=== PATIENT | female | born 1945 | race Caucasian/White ===

== ENCOUNTER 2025-01-04 08:12 | Inpatient (IN) | payer OTHER, MEDICARE ==
[~2025-01-04] VITALS: Ht 162.6 cm; Wt 63.5 kg
[2025-01-04 08:50] VITALS: PULSE 155; RESP 20
--- NOTE | 2025-01-04 09:24 | ED.PDOC ---
HPI Comments This is a 79 year-old female with a Hx of AFIB, who presents to the ED via EMS with a chief complaint of AFIB with associated symptoms of dizziness as of minutes ago. Patient reports taking medications for AFIB daily, as prescribed. Patient has no further complaints at this time and otherwise denies associated symptoms of fever, chills, N/V/D, weakness, fatigue, or headache. Chief Complaint: Palpitations Time Seen by MD: 09:11 Reviewed Notes: Medications Information Source: Patient Mode of Arrival: EMS Severity: Moderate Timing: Minutes Duration: Intermittent Radiation: No Radiation Onset: At Rest, With Light Exertion Associated Signs and Symptoms: Palpitations Past Medical History PAST MEDICAL HISTORY: AFIB Surgical History: Denies all surgeries Family History Family History: Reviewed,noncontributory to illness, No family hx of Cancer, No family hx of DM, No family hx of Heart va, No family hx of HTN, No family hx ofKidney va, No family hx of Liver va, No family hx of Lung va, No family hx of Stroke Social History Smoker: Non-Smoker Alcohol: Denies ETOH Use Drugs: Denies Drug Use Lives In: Home Constitutional: denies: chills, diaphoresis, fatigue, fever, malaise, sweats, weakness, others EENTM: denies: blurred vision, double vision, ear bleeding, ear discharge, ear drainage, ear pain, ear ringing, eye pain, eye redness, hearing loss, mouth pain, mouth swelling, nasal discharge, nose bleeding, nose congestion, nose pain, photophobia, tearing, throat pain, throat swelling, voice changes, others Respiratory: denies: cough, hemoptysis, orthopnea, SOB at rest, shortness of breath, SOB with excertion, stridor, wheezing, others Cardiovascular: reports: palpitations; denies: chest pain, dizzy spells, diaphoresis, Dyspnea on exertion, edema, irregular heart beat, left arm pain, lightheadedness, PND, syncope, others Gastrointestinal: denies: abdomen distended, abdominal pain, blood streaked bowels, constipated, diarrhea, dysphagia, difficulty swallowing, hematemesis, melena, nausea, poor appetite, poor fluid intake, rectal bleeding, rectal pain, vomiting, others Genitourinary: denies: abnormal vagina bleeding, burning, dyspareunia, dysuria, flank pain, frequency, hematuria, incontinence, pain, , vagina discharge, urgency, others Neurological: denies: dizziness, fainting, headache, left sided numbness, left sided weakness, numbness, paresthesia, pre-existing deficit, right sided numb ness, right sided weakness, seizure, speech problems, tingling, tremors, weakness, others Musculoskeletal: denies: back pain, gout, joint pain, joint swelling, muscle pain, muscle stiffness, neck pain, others Integumetry: denies: bruises, change in color, change in hair/nails, dryness, laceration, lesions, lumps, rash, wounds, others Allergic/Immunocompromised: denies: Difficulty Healing, Frequent Infections, Hives, Itching, others Hematologic/Lymphatic: denies: anemia, blood clots, easy bleeding, easy bruising, swollen glands, others Endocrine: denies: excessive hunger, excessive sweating, excessive thirst, excessive urination, flushing, intolerance to cold, intolerance to heat, unexplained weight gain, unexplained weight loss, others Psychiatric: denies: anxiety, bipolar disorder, depression, hopeless, panic disorder, schizophrenia, sleepless, suicidal, others All Other Systems: Reviewed and Negative Physical Exam General Appearance: Mild Distress, Normal HEENT: Normal ENT Inspection, TMs Normal Neck: Normal, Normal Inspection Respiratory: No Respiratory Distress, Normal Breath Sounds Cardiovascular: No Edema, Regular Rate/Rhythm Breast Exam: Deferred Gastrointestinal: Non Tender, Normal Bowel Sounds, Soft Genitalia: Deferred Pelvic: Deferred Rectal: Deferred Extremities: Normal capillary refill, No pedal edema Musculoskeletal : Apperance: Normal Neurologic: Alert, pediatric speech language pathologist II-XII nml as Tested, No Motor Deficits, Normal Affect, Normal Mood, No Sensory Deficits Cerebellar Function: Normal Reflexes: Normal Skin: Normal Color Lymphatic: No Adenopathy EKG EKG : Pulse Rate (adult): 158 [place]: Normal Cardiac Rhythm: Afib Block: None Hypertrophy: None ST: Normal Comments Rapid V-Rate Was a procedure done? Was a procedure done?: No CP Differential Dx Differential Diagnosis: A-fib, A-Flutter, Anxiety / Panic Attack Differential Diagnosis: HTN Essential Differential Diagnosis: Angina, Chest Wall Pain, Gastritis X-Ray, Labs, Meds, VS Vital Signs Date Time Temp Pulse Resp B/P (MAP) Pulse Ox O2 Delivery O2 Flow Rate FiO2 01/04/25 12:05 115/59 01/04/25 11:54 86 12 115/59 (77) 96 01/04/25 11:25 121/78 01/04/25 10:55 128/82 01/04/25 10:25 133/83 01/04/25 09:36 150 01/04/25 09:24 158 01/04/25 09:21 97.6 160 14 163/137 100 97.6 01/04/25 08:50 98.0 155 20 152/77 (102) 97 98.0 01/04/25 08:50 155 20 Room Air* 0 21 01/04/25 08:16 158 Lab Test 01/04/25 10:25 01/04/25 09:25 Range/Units Troponin I High Sensitivity 15 11 </=34 ng/L White Blood Count 7.7 4.4-10.8 10^3/uL Red Blood Count 5.19 4.0-5.20 10^6/uL Hemoglobin 15.8 12.2-16.2 g/dL Hematocrit 46.2 H 36.0-46.0 % Mean Corpuscular Volume 89.1 80.0-100.0 fL Mean Corpuscular Hemoglobin 30.4 28.0-32.0 pg Mean Corpuscular Hemoglobin Concent 34.1 32.0-36.0 g/dL Red Cell Distribution Width 13.6 11.8-14.3 % Platelet Count 251 140-450 10^3/uL Mean Platelet Volume 7.4 6.9-10.8 fL Neutrophils (%) (Auto) 80.6 H 37.0-80.0 % Lymphocytes (%) (Auto) 10.2 10.0-50.0 % Monocytes (%) (Auto) 7.0 0.0-12.0 % Eosinophils (%) (Auto) 1.2 0.0-7.0 % Basophils (%) (Auto) 1.0 0.0-2.0 % Neutrophils # (Auto) 6.2 1.6-8.6 10 ^3/uL Lymphocytes # (Auto) 0.8 0.4-5.4 10 ^3/uL Monocytes # (Auto) 0.5 0-1.3 10 ^3/uL Eosinophils # (Auto) 0.1 0-0.8 10 ^3/uL Basophils # (Auto) 0.1 0-0.2 10 ^3/uL Nucleated Red Blood Cells 0.0 % Sodium Level 144 136-145 mmol/L Potassium Level 3.4 L 3.5-5.1 mmol/L Chloride Level 106 98-107 mmol/L Carbon Dioxide Level 27 20-31 mmol/L Anion Gap 11 5-15 Blood Urea Nitrogen 14 9-23 mg/dL Creatinine 0.69 0.550-1.02 mg/dL Glomerular Filtration Rate Calc 89 >90 mL/min BUN/Creatinine Ratio 20.3 H 10.0-20.0 Serum Glucose 99 74-106 mg/dL Calcium Level 9.2 8.7-10.4 mg/dL Current Medications Medications (Trade) Dose Ordered Sig/Davey Route Start Time Stop Time Status Last Admin Diltiazem HCl 125 ml @ 5 mls/hr Q24H ONCE IV 01/04/25 10:00 01/05/25 09:59 01/04/25 10:25 Time of 1ST Reevaluation: 10:14 Reevaluation 1ST: Unchanged Patient Education/Counseling: Diagnosis, Treatment Family Education/Counseling: No Family Present SEPSIS Sepsis Screen Date sepsis recognized/suspect: Jan 04, 2025 Time Sepsis recognized/suspect: 0850 Recent Procedure: No On Antibiotic Therapy: No Respiratory Rate >20: No Heart Rate >90: Yes Temp<36 C (96.8 F) or >38.3 C: No SBP <90 or MAP <65 mmHG: No New Acute Mental Status Change: No Is the patient on CPAP, BIPAP,: No Physician Orders Electrocardigram (01/04/25 08:40) Electrocardigram (01/04/25 09:40) Electrocardigram (01/04/25 11:40) Urinalysis (01/04/25 09:12) Chest Portable (01/04/25 09:12) Troponin-I Hs (01/04/25 12:12) Diltiazem 125mg/125ml Bag Kit (Cardizem) (01/04/25 10:00) Communication Order (01/04/25 11:55) Vital Signs Date Time Temp Pulse Resp B/P (MAP) Pulse Ox O2 Delivery O2 Flow Rate FiO2 01/04/25 12:05 115/59 01/04/25 11:54 86 12 115/59 (77) 96 01/04/25 11:25 121/78 01/04/25 10:55 128/82 01/04/25 10:25 133/83 01/04/25 09:36 150 01/04/25 09:24 158 01/04/25 09:21 97.6 160 14 163/137 100 97.6 01/04/25 08:50 98.0 155 20 152/77 (102) 97 98.0 01/04/25 08:50 155 20 Room Air* 0 21 01/04/25 08:16 158 Laboratory Tests Test 01/04/25 09:25 White Blood Count 7.7 10^3/uL (4.4-10.8) Medications Medications Dose Ordered Sig/Davey Route Start Time Stop Time Status Last Admin Dose Admin Diltiazem HCl 125 ml @ 5 mls/hr Q24H ONCE IV 01/04/25 10:00 01/05/25 09:59 01/04/25 10:25 Departure 1 Departure Time of Disposition: 12:42 ([place] authorization to admit at [facility] BEDS AT THE [facility] [phone].Patient with AFib with RVR started on diltiazem drip since that is patient's home medication. Patient is still having chest pain and shortness of breath. We will admit patient for further workup and expert consultation) Impression: Primary Impression: Atrial fibrillation with RVR Additional Impressions: Acute chest pain Shortness of breath Disposition: ADMITTED INPATIENT Admit to: [facility] Condition: Guarded Critical Care Note Critical Care Time?: Yes (30 min-critical care time only) Critical care comment: AFib with RVR and acute chest pain Authorized and Performed by: Amalia Sheridan MD Total critical care time: Approximately 38 minutes Due to a high probability of clinically significant, life threatening deterioration, the patient required my highest level of preparedness to intervene emergently and I personally spent this critical care time directly and personally managing the patient. This critical care time included obtaining a history; examining the patient; pulse oximetry; ordering and review of studies; arranging urgent treatment with development of a management plan; evaluation of patient's response to treatment; frequent reassessment; and, discussions with other providers. This critical care time was performed to assess and manage the high probability of imminent, life-threatening deterioration that could result in multi-organ failure. It was exclusive of separately billable procedures and treating other patients and teaching time. Please see my other sections and the rest of the note for further information on patient assessment and treatment. Stability Stability form required: No Heart Score Heart Score: Heart Score Response (Comments) Value History Moderate Suspicious 1 EKG Normal 0 Age >65 2 Risk Factors 1 or 2 risk factors 1 Troponin N/A 0 Total 4 I personally scribed for AMALIA SHERIDAN MD ([email or web address]) on 01/04/25 at 09:24. Electronically submitted by Monica Aquino ([facility]). AMALIA SHERIDAN MD Jan 04, 2025 09:24
[2025-01-04 09:51] LABS: Hematocrit 46.2 % (36.0-46.0); Hemoglobin 15.8 g/dL (12.2-16.2); Mean Corpuscular Hemoglobin 30.4 pg (28.0-32.0); Mean Corpuscular Volume 89.1 fL (80.0-100.0); Nucleated Red Blood Cells % 0.0 %
--- NOTE | 2025-01-04 10:00 | DVH ---
INDICATION: cp TECHNIQUE: Frontal view of the chest. COMPARISON: None FINDINGS: . The heart and mediastinal contours are grossly unremarkable. There is no evidence of pleural disease. The lungs are clear. The bony structures of the chest are intact without fracture. IMPRESSION: 1. No evidence of acute disease.
[2025-01-04 10:06] LABS: Chloride 106 mmol/L (98-107); Sodium 144 mmol/L (136-145)
[2025-01-04 10:07] LABS: Anion Gap 11 (5-15); Calcium 9.2 mg/dL (8.7-10.4); Carbon Dioxide 27 mmol/L (20-31)
[2025-01-04 10:12] LABS: BUN/Creatinine Ratio 20.3 (10.0-20.0); Blood Urea Nitrogen 14 mg/dL (9-23); Glucose 99 mg/dL (74-106)
[2025-01-04 10:30] LABS: Potassium 3.4 mmol/L (3.5-5.1)
[2025-01-04 13:38] LABS: Urine Protein, UAD Negative (Negative)
[2025-01-04] MEDS ORDERED: NITROGLYCERIN 0.4 MG SL TAB SL PRN ×2 (14:45→15:00)
[2025-01-04] MEDS ORDERED: MORPHINE SULFATE INJ 2 MG/ml SYRG IV PRN ×4 (14:45→15:00)
[2025-01-04] MEDS ORDERED: SODIUM CHLORIDE 0.9% 1,000 ML IV SCH (14:45)
[2025-01-04] MEDS ORDERED: ONDANSETRON HCL 4 MG/2 ML VIAL IV PRN ×2 (14:45→15:00)
[2025-01-04] MEDS ORDERED: ACETAMINOPHEN 325 MG TAB PO PRN (14:45)
--- NOTE | 2025-01-04 15:40 | DVHHPRES ---
History of Present Illness Resident Creating Document: OMID CARMONA RESIDENT History of Present Illness Ms. Segura, a 79-year-old female with a history of paroxysmal A fib on Eliquis, chronic back pain on as needed, essential hypertension on home medications, chronic hypokalemia on daily supplements, atopy/ asthma on Alvesco (ciclesonide) is commonly used as a controller medicine for asthma, eczema presents to the ED via EMS for palpitations and dizziness that began minutes ago And she had to wake up from sleep. she reports taking her medications and despite that pre viously had multiple episodes of A Fib with RVR episodes needing hospitalist/ED visit. She reports taking her A Fib medications daily as prescribed and denies fever, chills, nausea, vomiting, diarrhea, weakness, fatigue, or headache. Symptoms are moderate in severity, intermittent, and occurred at rest and with light exertion. No prior surgeries reported. PMHx: paroxysmal A fib on Eliquis, chronic back pain on as needed, essential hypertension on home medications, chronic hypokalemia on daily supplements, atopy/ asthma on Alvesco (ciclesonide) is commonly used as a controller medicine for asthma, eczema. PSHx: Denies Family history: Reviewed, noncontributory to illness. Social history: Patient lives by herself, denies lifetime use of recreational drug, alcohol, smoking. Independent of ADL. Review of Systems Constitutional: No: Fever, Chills, Sweats, Weakness, Malaise, Other Eyes: No: Pain, Vision change, Conjunctivae inflammation, Eyelid inflammation, Other, Redness ENT: No: Ear pain, Ear discharge, Nose pain, Nose discharge, Nose congestion, Mouth pain, Mouth swelling, Throat pain, Throat swelling, Other Respiratory: No: Cough, Dry, Shortness of breath, SOB with excertion, Wheezing, Hemoptysis, Pleuritic Pain, Sputum, Wheezing, Other Cardiovascular: Palpitations, Lt Headedness; No: Chest Pain, Orthopnea, Paroxysmal Noc. Dyspnea, Edema, Other Gastrointestinal: No: Nausea, Vomiting, Abdominal Pain, Diarrhea, Constipation, Melena, Hematochezia, Other Genitourinary: No Dysuria, No Frequency, No Incontinence, No Hematuria, No Retention, No Other Musculoskeletal: No: other, neck pain, shoulder pain, arm pain, back pain, hand pain, leg pain, foot pain Skin: No: Rash, Lesions, Jaundice, Bruising, Other Neurological: No: Weakness, Numbness, Incoordination, Change in speech, Confusion, Seizures, Other Allergies: Coded Allergies: NO KNOWN ALLERGIES (Unverified , 01/04/25) Medications Current Medications Medications Dose Ordered Sig/Davey Route Start Time Stop Time Status Last Admin Dose Admin Ondansetron HCl 4 mg Q4HP PRN IV 01/04/25 15:00 Morphine Sulfate 2 mg Q4HPRN PRN IV 01/04/25 15:00 Morphine Sulfate 2 mg Q30M PRN IV 01/04/25 15:00 Sodium Chloride 1,000 ml @ 60 mls/hr [id number] IV 01/04/25 15:00 Acetaminophen 650 mg Q6HP PRN PO 01/04/25 15:00 Nitroglycerin 0.4 mg Q5MINP PRN SL 01/04/25 15:00 Diltiazem HCl 120 mg DAILY PO 01/05/25 10:00 UNV Apixaban 5 mg BID PO 01/04/25 22:00 UNV Levalbuterol HCl 0.625 mg Q6HWA PRN NEB 01/04/25 15:45 UNV Exam Vital Signs Vital Signs Date Time Temp Pulse Resp B/P (MAP) Pulse Ox O2 Delivery O2 Flow Rate FiO2 01/04/25 15:20 133/85 01/04/25 13:31 82 16 94 01/04/25 09:21 97.6 97.6 01/04/25 08:50 Room Air* 0 21 General Appearance: Alert, Oriented X3, Cooperative HEENT: Atraumatic, PERRLA, Other (dry mucosa) Respiratory: Clear to auscultation, Normal air movement, Other (no wheezing, in room air ) Cardiovascular: Regular rate, Normal S1, Normal S2, No murmurs, Other (HR 80s, paroxysmal Afib. ) Abdominal: Normal bowel sounds, Soft, No tenderness, No hepatospenomegaly, No masses Extremities: No clubbing, No cyanosis, No edema, Normal pulses, No tenderness/swelling Skin: No rashes, No breakdown, No significant lesion Neuro: Normal gait, Normal speech, Strength at 5/5 X4 ext, Normal tone, Sensation intact Psych/Mental Status: Mental status NL, Mood NL Labs/Xrays Labs Test 01/04/25 12:47 01/04/25 12:35 01/04/25 09:25 Range/Units Urine Color Colorless Yellow Urine Clarity Clear Clear Urine pH 6.0 5.0-9.0 Urine Specific [place] 1.008 1.001-1.035 Urine Protein Negative Negative Urine Ketones 1+ H Negative Urine Blood 1+ H Negative /uL Urine Nitrite Negative Negative Urine Bilirubin Negative Negative Urine Urobilinogen Normal Negative mg/dL Urine Leukocyte Esterase Negative Negative /uL Urine RBC 4 0 - 4 /hpf Urine Microscopic WBC 2 0-5 /HPF Urine Squamous Epithelial Cells Few <5 /hpf Urine Bacteria Few H None Seen /hpf Urine Glucose Normal Normal mg/dL Troponin I High Sensitivity 19 </=34 ng/L White Blood Count 7.7 4.4-10.8 10^3/uL Red Blood Count 5.19 4.0-5.20 10^6/uL Hemoglobin 15.8 12.2-16.2 g/dL Hematocrit 46.2 H 36.0-46.0 % Mean Corpuscular Volume 89.1 80.0-100.0 fL Mean Corpuscular Hemoglobin 30.4 28.0-32.0 pg Mean Corpuscular Hemoglobin Concent 34.1 32.0-36.0 g/dL Red Cell Distribution Width 13.6 11.8-14.3 % Platelet Count 251 140-450 10^3/uL Mean Platelet Volume 7.4 6.9-10.8 fL Neutrophils (%) (Auto) 80.6 H 37.0-80.0 % Lymphocytes (%) (Auto) 10.2 10.0-50.0 % Monocytes (%) (Auto) 7.0 0.0-12.0 % Eosinophils (%) (Auto) 1.2 0.0-7.0 % Basophils (%) (Auto) 1.0 0.0-2.0 % Neutrophils # (Auto) 6.2 1.6-8.6 10 ^3/uL Lymphocytes # (Auto) 0.8 0.4-5.4 10 ^3/uL Monocytes # (Auto) 0.5 0-1.3 10 ^3/uL Eosinophils # (Auto) 0.1 0-0.8 10 ^3/uL Basophils # (Auto) 0.1 0-0.2 10 ^3/uL Nucleated Red Blood Cells 0.0 % Sodium Level 144 136-145 mmol/L Potassium Level 3.4 L 3.5-5.1 mmol/L Chloride Level 106 98-107 mmol/L Carbon Dioxide Level 27 20-31 mmol/L Anion Gap 11 5-15 Blood Urea Nitrogen 14 9-23 mg/dL Creatinine 0.69 0.550-1.02 mg/dL Glomerular Filtration Rate Calc 89 >90 mL/min BUN/Creatinine Ratio 20.3 H 10.0-20.0 Serum Glucose 99 74-106 mg/dL Calcium Level 9.2 8.7-10.4 mg/dL SEPSIS Sepsis Screen Date sepsis recognized/suspect: Jan 04, 2025 Time Sepsis recognized/suspect: 819 Recent Procedure: No On Antibiotic Therapy: No Respiratory Rate >20: No Heart Rate >90: No Temp<36 C (96.8 F) or >38.3 C: No SBP <90 or MAP <65 mmHG: No New Acute Mental Status Change: No Is the patient on CPAP, BIPAP,: No Physician Orders Electrocardigram (01/04/25 08:40) Electrocardigram (01/04/25 09:40) Electrocardigram (01/04/25 11:40) Chest Portable (01/04/25 09:12) Diltiazem 125mg/125ml Bag Kit (Cardizem) (01/04/25 10:00) Communication Order (01/04/25 11:55) Admit (01/04/25 14:40) Allergies (01/04/25 14:40) Code Status (01/04/25 14:40) Echo 2d Mode Cardiac Dop (01/04/25 14:40) Condition: Serious (01/04/25 14:40) Bedrest With Bathroom Privileg (01/04/25 14:40) Maintain Bed Rest (01/04/25 14:40) Oxygen By Nasal Cannula (01/04/25 14:40) Stat Ekg For Chest Pain (01/04/25 14:40) Notify Md Of Changes From Base (01/04/25 14:40) Hospital Carrier For 24 Hours (01/04/25 14:40) Emergency Dysrhythmia Protocol (01/04/25 14:40) Rhythm Strips Once Every Shift (01/04/25 14:40) Ondansetron Hcl (Zofran) (01/04/25 15:00) Morphine Sulfate Injection (01/04/25 15:00) Morphine Sulfate Injection (01/04/25 15:00) Sodium Chloride 0.9% (01/04/25 15:00) Acetaminophen Tablet (Tylenol Tablet) (01/04/25 15:00) Nitroglycerin Sublingual (Ntrostat Subli (01/04/25 15:00) Complete Blood Count (01/05/25 04:00) Comprehensive Metabolic Panel (01/05/25 04:00) Potassium Chloride (Potassium Chloride). (01/04/25 15:30) Magnesium Sulfate 1gm/100ml (01/04/25 15:30) Diltiazem Er Capsule (Cardizem Er Capsul (01/04/25 15:30) Diltiazem Er Capsule (Cardizem Er Capsul (01/05/25 10:00) Magnesium (01/05/25 04:00) Prothrombin Time W/ Inr (01/04/25 15:32) Partial Thromboplastin Time (01/04/25 15:32) Apixaban (Eliquis) (01/04/25 22:00) Covid19 Antigen Jillian (01/04/25 ) Rapid Influenza A&B (01/04/25 15:33) Levalbuterol Hcl (Xopenex Medneb) (01/04/25 15:45) Hepatic Panel (01/04/25 15:33) B-Type Natriuretic Peptide (01/04/25 15:33) Drug Screen (01/04/25 15:34) Thyroid Stimulating Hormone (01/04/25 15:34) Hydrocodone-Acet 5/325mg Tab (Lindsay 5/32 (01/04/25 15:45) Cardiac Diet-2gna,Lofat,Lochol (01/04/25 Dinner) Vital Signs Date Time Temp Pulse Resp B/P (MAP) Pulse Ox O2 Delivery O2 Flow Rate FiO2 01/04/25 15:20 133/85 01/04/25 14:50 128/80 01/04/25 14:20 146/78 01/04/25 14:05 139/62 01/04/25 13:35 119/76 01/04/25 13:31 82 16 119/76 (90) 94 01/04/25 13:05 135/71 01/04/25 12:35 134/68 01/04/25 12:05 115/59 01/04/25 12:00 86 01/04/25 11:54 86 12 115/59 (77) 96 01/04/25 11:25 121/78 01/04/25 10:55 128/82 01/04/25 10:25 133/83 01/04/25 09:36 150 01/04/25 09:24 158 01/04/25 09:21 97.6 160 14 163/137 100 97.6 01/04/25 08:50 98.0 155 20 152/77 (102) 97 98.0 01/04/25 08:50 155 20 Room Air* 0 21 01/04/25 08:16 158 Laboratory Tests Test 01/04/25 09:25 White Blood Count 7.7 10^3/uL (4.4-10.8) Medications Medications Dose Ordered Sig/Davey Route Start Time Stop Time Status Last Admin Dose Admin Diltiazem HCl 125 ml @ 5 mls/hr Q24H ONCE IV 01/04/25 10:00 01/05/25 09:59 01/04/25 10:25 5 MLS/HR Assessment/Plan Assessment/Plan Assessment and Plan: Present on Admission: #acute onset palpitations: chads Vasc score more than 3, no previous history of bleeding. AFib with RVR , ruled out ACS, paroxysmal AFib, status post IV drip of correction channel blockers, heart rate improved, correct electrolytes with keep potassium above 4, magnesium above 2, started back on Eliquis 5 mg b.i.d., Started with bridging between Cardizem drip and Cardizem ER 120, as needed up titrate. Echo, EKG, troponin and BNP checked. #Essential hypertension, mildly uncontrolled: at home on hydrochlorothiazide and Rajat/Arb: Never diabetic, target blood pressure 140/90 or below. Titrate blood pressure after titrating beta blockade. #mild hypokalemia, 3.4, status post oral, target around 4. Can consider home potassium chloride 10 mEq daily. #Transaminitis , mild: asymptomatic, Mildly elevated alkaline phosphate, liver ultrasound to rule out any hepatobiliary obstruction. #mild dehydration: IV fluid replenishment, hold home antihypertensives, correct heart rate first, titrate up CCB. Known Medical Conditions: #Asthma: At the time of presentation, patient breathing comfortably in the room air, chest examination unremarkable, at home patient is currently on Alvesco due to intolerance to beta 1 along its, leave albuterol as needed to continue. PUD prophylaxis: protonix 40mg portal daily DVT prophylaxis: Eliquis to continue Barriers to discharge: Medical diagnosis and management in progress. Patient lives with self. Independent for ADL. PCP: Dr. Marroquin. Specialist Relevant To Admission: Cardiology, Patient does not have a usp Cardiology, previously followed follow up with the name. If patient is hemodynamically stable and heart rate control can skip cardiology consult. Case discussed with Dr. Dalal. Code Status: Full Code. Discussion goals of care and care plan needed total 31 minutes bedside. Plan discussed with: Patient My Orders Orders - OMID CARMONA RESIDENT Procedure Category Date Status Time Admit ADMIT 01/04/25 Transmitted 14:40 Allergies [facility] 01/04/25 In Process 14:40 Code Status CODE 01/04/25 Transmitted 14:40 Echo 2d Mode Cardiac US 01/04/25 Logged DOP 14:40 Condition: Serious [facility] 01/04/25 In Process 14:40 Bedrest With Bathroom [facility] 01/04/25 In Process Privileg 14:40 Maintain Bed Rest [facility] 01/04/25 In Process 14:40 Oxygen By Nasal RT 01/04/25 Transmitted Cannula 14:40 Stat Ekg For Chest [facility] 01/04/25 In Process Pain 14:40 Notify Md Of Changes [facility] 01/04/25 In Process From Base 14:40 Hospital Carrier For [facility] 01/04/25 In Process 24 Hours 14:40 Emergency Dysrhythmia [facility] 01/04/25 In Process Protocol 14:40 Rhythm Strips Once [facility] 01/04/25 In Process Every Shift 14:40 Ondansetron Hcl [facility] 01/04/25 In Process (Zofran) 15:00 Morphine Sulfate [facility] 01/04/25 In Process Injection 15:00 Morphine Sulfate [facility] 01/04/25 In Process Injection 15:00 Sodium Chloride 0.9% [facility] 01/04/25 In Process 15:00 Acetaminophen Tablet [facility] 01/04/25 In Process (Tylenol Tablet) 15:00 Nitroglycerin [facility] 01/04/25 In Process Sublingual (Ntrostat 15:00 Complete Blood Count LAB 01/05/25 Verified 04:00 Comprehensive LAB 01/05/25 Verified Metabolic Panel 04:00 Potassium Chloride PHA 01/04/25 Logged (Potassium Chloride). 15:30 Magnesium Sulfate PHA 01/04/25 Logged 1gm/100ml 15:30 Diltiazem Er Capsule PHA 01/04/25 Logged (Cardizem Er Capsul 15:30 Diltiazem Er Capsule PHA 01/05/25 Logged (Cardizem Er Capsul 10:00 Magnesium LAB 01/05/25 Verified 04:00 Prothrombin Time W/ LAB 01/04/25 Logged INR 15:32 Partial LAB 01/04/25 Logged Thromboplastin Time 15:32 Apixaban (Eliquis) [facility] 01/04/25 Logged 22:00 Covid19 Antigen Jillian LAB 01/04/25 Logged Rapid Influenza A&B LAB 01/04/25 Logged 15:33 Levalbuterol Hcl [facility] 01/04/25 Logged (Xopenex Medneb) 15:45 Hepatic Panel LAB 01/04/25 In Process 15:33 B-Type Natriuretic LAB 01/04/25 In Process Peptide 15:33 Drug Screen LAB 01/04/25 Logged 15:34 Thyroid Stimulating LAB 01/04/25 In Process Hormone 15:34 Hydrocodone-Acet PHA 01/04/25 Transmitted 5/325mg Tab (Lindsay 15:45 Cardiac DIET 01/04/25 Transmitted Diet-2gna,Lofat,Lochol Dinner Date of Service: Jan 04, 2025 Billing Provider: PRINCE DALAL MD Common Visit Codes: [id number] INP/OBS CARE (HIGH) Secondary Visit Codes: [id number] CARE PLAN 30 MINUTES OMID CARMONA RESIDENT Jan 04, 2025 15:40
[2025-01-04] MEDS ORDERED: HYDROcodone-ACET 5/325MG TAB PO PRN (15:45)
[2025-01-04] MEDS ORDERED: LEVALBUTEROL HCL 1.25 MG/3 ML NEB NEB PRN (15:45)
[2025-01-04 15:57] LABS: Albumin 4.2 g/dL (3.2-4.8); Bilirubin, Direct 0.2 mg/dL (<0.3); Bilirubin, Total 0.5 mg/dL (0.2-1.0); Total Protein 7.1 g/dL (5.7-8.2)
[2025-01-04 16:04] LABS: Alanine Aminotransferase 48.0 U/L (7-40); Alkaline Phosphatase 128.0 U/L (46-116)
[2025-01-04 16:09] VITALS: BP 119/76; RESP 16; TEMP 98.7; O2SAT 94
[2025-01-04] MEDS ORDERED: MAGNESIUM SULFATE 1GM/100ML 100 ML IV ONE (16:12)
[2025-01-04] MEDS ORDERED: dilTIAZem 120MG ER CAP PO ONE (16:18)
[2025-01-04] MEDS: MAGNESIUM SULFATE 1GM/100ML 100 ML IV ONE (16:19)
[2025-01-04] MEDS: dilTIAZem 120MG ER CAP PO ONE (16:19)
[2025-01-04 16:39] LABS: INR 1.01 (0.9-1.15); Partial Thromboplastin Time 27.6 SEC (24.5-34.5); Prothrombin Time 10.7 sec (9.3-11.8)
--- NOTE | 2025-01-04 17:00 | DVHSR ---
APPROVED REPORT EXAM: LIMITED Two-dimensional and M-mode echocardiogram with Doppler and color Doppler. Blood Pressure: 119/76 mmHg INDICATION Rule out structural heart disease RISK FACTORS Height: 5'4", Weight: 139 DIMENSIONS LVDd (3.8-5.7cm) LA (2D) 3.7 (1.9-4.0cm) Aortic Root 3.1 (2.0-3.7cm) LVDs (2.5-4.0cm) LA (MM) (1.9-4.0cm) Aortic Cusp Exc 1.7 (1.5-2.0cm) EF (%) 65.0 (55-70%) Rt. Atrium 3.6 (1.9-4.0cm) Asc. Aorta 3.3 cm Mitral Valve Mitral Mitral Stenosis E wave 0.53m/s MV Mean GR. mmHg A wave 0.80m/s MV Peak GR. mmHg E/A ratio 0.7 2D MVA cm2 DECEL Time 198ms PRESS 1/2 Time ms Aortic Valve Aortic Valve Aortic Stenosis V1 1.08m/s AO Mean GR. 4mmHg V2 1.43m/s AO Peak GR. 8mmHg LVOT Diameter 1.8 (1.8-2.4cm) Doppler ANITA 1.92cm2 Other Information Quality : Technically Limited Rhythm : Technically limited study due to body habitus, patient sensitive to touch and holding breath during parasternals. Conclusion Sinus rhythm. Aortic root enlargement. Dilated ascending aorta. Left atrial enlargement. Valves are normal. EF of 60% with normal RV function. Guaf-oo-rmwkwrph mitral insufficiency with moderate tricuspid regurgitation. Mild aortic insufficiency. Pericardial fat pad noted. No intracardiac masses thrombi or vegetations.
[2025-01-04] MEDS: SODIUM CHLORIDE 0.9% 1,000 ML IV SCH (17:16)
[2025-01-04 17:39] LABS: Opiate Scree,Urine Neg (NEGATIVE)
[2025-01-04 17:47] LABS: Amphetamine Screen, Urine Neg (NEGATIVE); Barbiturate Scree,Urine Neg (NEGATIVE); Benzodiazephine Screen, Urine Neg (NEGATIVE); Cannabinoid Screen, Urine Neg (NEGATIVE); Cocaine Screen, Urine Neg (NEGATIVE); Phencyclidine Screen, Urine Neg (NEGATIVE)
[2025-01-04] MEDS: POTASSIUM CHLORIDE 40 MEQ, LIDOCAINE 1% (LOCAL ANESTH.) 4 ML in SODIUM CHL 0.9% 250 ML IV ONE (17:56)
[2025-01-04] MEDS ORDERED: LEVALBUTEROL HCL 1.25 MG/3 ML NEB ONE (18:13)
[2025-01-04] MEDS: PANTOPRAZOLE 40 MG TAB PO ONE (18:30)
[2025-01-04 20:06] VITALS: PULSE 81; RESP 20; O2SAT 97
[2025-01-04] MEDS: APIXABAN 5 MG TAB PO SCH (22:00)
[2025-01-05 01:02] LABS: COVID19 ANTIGEN SOFIA FIA NEGATIVE (NEGATIVE)
--- NOTE | 2025-01-05 01:26 | ECG ---
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
[2025-01-05 02:54] VITALS: BP 115/82; PULSE 98; RESP 18; TEMP 98.2; O2SAT 95
[2025-01-05] MEDS ORDERED: APIX5TAB PO (03:42)
[2025-01-05] MEDS: ACETAMINOPHEN 325 MG TAB PO PRN (04:23)
[2025-01-05 05:00] VITALS: BP 147/89; PULSE 75; RESP 17; TEMP 97.7; O2SAT 95
[2025-01-05] MEDS: PANTOPRAZOLE 40 MG TAB PO SCH (05:54)
[2025-01-05 06:59] VITALS: O2SAT 95
[2025-01-05 08:00] VITALS: PULSE 68; PULSE 71; RESP 17; O2SAT 97
[2025-01-05 08:56] LABS: Hematocrit 43.9 % (36.0-46.0); Hemoglobin 15.1 g/dL (12.2-16.2); Mean Corpuscular Hemoglobin 30.5 pg (28.0-32.0); Mean Corpuscular Volume 89.0 fL (80.0-100.0); Nucleated Red Blood Cells % 0.1 %
[2025-01-05 08:57] VITALS: BP 140/74; PULSE 71; RESP 20; TEMP 98.3; O2SAT 94
[2025-01-05 09:14] LABS: Alanine Aminotransferase 34 U/L (7-40); Albumin 4.0 g/dL (3.2-4.8); Alkaline Phosphatase 114 U/L (46-116); Anion Gap 11 (5-15); BUN/Creatinine Ratio 17.1 (10.0-20.0); Blood Urea Nitrogen 12 mg/dL (9-23); Calcium 8.9 mg/dL (8.7-10.4); Carbon Dioxide 25 mmol/L (20-31); Chloride 107 mmol/L (98-107); Magnesium 2.2 mg/dL (1.6-2.6); Potassium 3.7 mmol/L (3.5-5.1); Sodium 143 mmol/L (136-145); Total Protein 6.7 g/dL (5.7-8.2)
[2025-01-05 09:15] LABS: Bilirubin, Total 0.7 mg/dL (0.2-1.0)
[2025-01-05 09:17] LABS: Glucose 120 mg/dL (74-106)
[2025-01-05] MEDS ORDERED: dilTIAZem 120MG ER CAP PO ONE (10:20)
[2025-01-05] MEDS ORDERED: APIXABAN 5 MG TAB ONE (10:20)
[2025-01-05] MEDS ORDERED: ACETAMINOPHEN 325 MG TAB PO ONE (10:21)
[2025-01-05] MEDS: dilTIAZem 120MG ER CAP PO SCH (10:28)
[2025-01-05 13:02] VITALS: BP 135/75; PULSE 74; RESP 20; TEMP 98.2; O2SAT 95
--- NOTE | 2025-01-05 14:21 | DVHDS2 ---
Discharge Summary Date of Admission Jan 04, 2025 at 14:40 Date of Discharge: Jan 05, 2025 Labs/Diagnostic Data: Laboratory Results Test 01/05/25 08:23 01/04/25 15:52 01/04/25 14:27 01/04/25 12:47 White Blood Count 6.0 10^3/uL (4.4-10.8) Red Blood Count 4.93 10^6/uL (4.0-5.20) Hemoglobin 15.1 g/dL (12.2-16.2) Hematocrit 43.9 % (36.0-46.0) Mean Corpuscular Volume 89.0 fL (80.0-100.0) Mean Corpuscular Hemoglobin 30.5 pg (28.0-32.0) Mean Corpuscular Hemoglobin Concent 34.3 g/dL (32.0-36.0) Red Cell Distribution Width 13.5 % (11.8-14.3) Platelet Count 240 10^3/uL (140-450) Mean Platelet Volume 7.6 fL (6.9-10.8) Neutrophils (%) (Auto) 71.4 % (37.0-80.0) Lymphocytes (%) (Auto) 17.5 % (10.0-50.0) Monocytes (%) (Auto) 6.3 % (0.0-12.0) Eosinophils (%) (Auto) 3.7 % (0.0-7.0) Basophils (%) (Auto) 1.1 % (0.0-2.0) Neutrophils # (Auto) 4.3 10 ^3/uL (1.6-8.6) Lymphocytes # (Auto) 1.1 10 ^3/uL (0.4-5.4) Monocytes # (Auto) 0.4 10 ^3/uL (0-1.3) Eosinophils # (Auto) 0.2 10 ^3/uL (0-0.8) Basophils # (Auto) 0.1 10 ^3/uL (0-0.2) Nucleated Red Blood Cells 0.1 % Sodium Level 143 mmol/L (136-145) Potassium Level 3.7 mmol/L (3.5-5.1) Chloride Level 107 mmol/L (98-107) Carbon Dioxide Level 25 mmol/L (20-31) Anion Gap 11 (5-15) Blood Urea Nitrogen 12 mg/dL (9-23) Creatinine 0.70 mg/dL (0.550-1.02) Glomerular Filtration Rate Calc 88 mL/min (>90) BUN/Creatinine Ratio 17.1 (10.0-20.0) Serum Glucose 120 mg/dL (74-106) Calcium Level 8.9 mg/dL (8.7-10.4) Magnesium Level 2.2 mg/dL (1.6-2.6) Total Bilirubin 0.7 mg/dL (0.2-1.0) Aspartate Amino Transferase (AST) 22 U/L (13-40) Alanine Aminotransferase (ALT) 34 U/L (7-40) Alkaline Phosphatase 114 U/L (46-116) Total Protein 6.7 g/dL (5.7-8.2) Albumin 4.0 g/dL (3.2-4.8) Prothrombin Time 10.7 sec (9.3-11.8) Prothrombin Time INR 1.01 (0.9-1.15) Activated Partial Thromboplast Time 27.6 SEC (24.5-34.5) Urine Opiates Screen Neg (NEGATIVE) Urine Fentanyl Screen Neg (NEGATIVE) Urine Barbiturates Screen Neg (NEGATIVE) Urine Phencyclidine Screen Neg (NEGATIVE) Urine Amphetamines Screen Neg (NEGATIVE) Urine Benzodiazepines Screen Neg (NEGATIVE) Urine Cocaine Screen Neg (NEGATIVE) Urine Cannabinoids Screen Neg (NEGATIVE) Urine Color Colorless (Yellow) Urine Clarity Clear (Clear) Urine pH 6.0 (5.0-9.0) Urine Specific [place] 1.008 (1.001-1.035) Urine Protein Negative (Negative) Urine Ketones 1+ (Negative) Urine Blood 1+ /uL (Negative) Urine Nitrite Negative (Negative) Urine Bilirubin Negative (Negative) Urine Urobilinogen Normal mg/dL (Negative) Urine Leukocyte Esterase Negative /uL (Negative) Urine RBC 4 /hpf (0 - 4) Urine Microscopic WBC 2 /HPF (0-5) Urine Squamous Epithelial Cells Few /hpf (<5) Urine Bacteria Few /hpf (None Seen) Urine Glucose Normal mg/dL (Normal) Test 01/04/25 12:35 01/04/25 09:25 01/04/25 00:05 Troponin I High Sensitivity 19 ng/L (</=34) Direct Bilirubin 0.2 mg/dL (<0.3) B-Type Natriuretic Peptide 116.88 pg/mL (0-100) Thyroid Stimulating Hormone (TSH) 1.77 uIU/mL (0.55-4.78) Influenza Type A Antigen Negative (Negative) Influenza Type B Antigen Negative (Negative) SARS-CoV-2 Antigen (Rapid) Negative (NEGATIVE) Other Laboratory Tests 01/05/25 08:23 Brief Hx & Hospital Course: 79-year-old female who was admitted for palpitations and was in atrial fibrillation with rapid ventricular response She takes Cardizem at home and Eliquis She also has UTI She was given Cardizem IV and her heart rate improved Heart rate now is in the 70s Vital signs are stable She is asymptomatic She is stable for transfer to [place] Final diagnoses: Atrial fibrillation with rapid ventricular response UTI Hypertension Chronic low back pain Condition at Discharge: Stable Final Diagnosis/Problems List Atrial fibrillation with rapid ventricular response UTI Hypertension Chronic low back pain Discharge Disposition: Acute Care Facility SNF Discharge Will this Physician continue t: No Discharge Instruct/Medications Diet: Cardiac 2g Na,low cholest Activity: No Restrictions, As Tolerated Follow Up/Referral: [place] accepting doctor Medications: See med rec Scheduled Ap[employer] (Eliquis), 1 TAB PO BID, (Reported) Discharge Statement: "Patient was advised to return to the ER or call 911 if any headaches, dizziness, shortness of breath, chest pain, abdominal pain, bleeding, fevers, or worsening of medical condition. Patient was counseled about treatment plan, medications, possible side effects, patientverbalized understanding. All questions were answered to the best of my ability. This discharge took greater then 30 minutes in planning, reviewing documentation, counseling the patient, and discussing with other team members." ASSESSMENT ASSESSMENT Assessment Atrial fibrillation with rapid ventricular response UTI Hypertension Chronic low back pain Date of Service: Jan 05, 2025 Billing Provider: MARI LEAL MD Common Visit Codes: 95039-MOP/OBS DISCH DAY >30min MARI LEAL MD Jan 05, 2025 14:21
--- NOTE | 2025-01-06 08:25 | ECG ---
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
== END 2025-01-05 15:55 | disposition left against medical advice (07) | DRG 309 ==
LOC: EDBD 08:12 → ER 08:12 → OVERFLOW 14:40 → ER 14:48 → UNDODEPER 15:04 → TELE-WESTW 01-05 02:55
PROVIDERS: ADMIT Student in an Organized Health Care Education/Training Program; ATTEND Emergency Medicine
DX: I48.0 Paroxysmal atrial fibrillation (principal); N39.0 Urinary tract infection, site not specified; E86.0 Dehydration; Z79.01 Long term (current) use of anticoagulants; I10 Essential (primary) hypertension; I48.91 Unspecified atrial fibrillation; Z20.822 Contact with and (suspected) exposure to COVID-19; E87.6 Hypokalemia; R74.01 Elevation of levels of liver transaminase levels; G89.29 Other chronic pain; M54.50 Low back pain, unspecified; Z79.899 Other long term (current) drug therapy
CPT/HCPCS: 36415; 71045; 80048; 80053; 80076; 80307; 81001; 83735; 83880; 84443; 84484; 85025; 85610; 85730; 87086; 87088; 87186; 87426; 87804; 93005; 93306; 96365; 99291; G0378; J2003